=== PATIENT | male | born 1965 | race Caucasian/White ===

== ENCOUNTER → 2016-06-22 | Outpatient (CLI) | payer OTHER ==
[~2016-06-22] MED LIST: Z.0.NO CURRENT MEDS
--- NOTE | 2016-06-22 10:32 | RADRPT ---
EXAM DATE/TIME: 06/22/2016 09:56 [place] COMPARISON: No previous studies available for comparison. INDICATIONS : Palpable mass. MEDICAL HISTORY : Possible hernia. SURGICAL HISTORY : None. ENCOUNTER: Initial ACUITY: 3 months PAIN SCORE: 0/10 LOCATION: Abdomen. AREA EVALUATED: Bilateral inguinal canal. FINDINGS: Imaging of the inguinal canal bilaterally. There appears to be a small hernia in the right inguinal c anal containing predominantly fat. There is minimal bowel present in the right inguinal hernia. No l eft inguinal hernia. There is a small hernia containing bowel in the left suprapubic region. CONCLUSION: 1. Small hernia right inguinal canal. 2. Left suprapubic ventral hernia. Alvino Adler MD on June 22, 2016 at 10:28 Board Certified Radiologist. This report was verified electronically.
== END ==
LOC: HRAD 09:07
PROVIDERS: ATTEND Family Medicine
DX: K46.9 Unspecified abdominal hernia without obstruction or gangrene (principal)
CPT/HCPCS: 76705